=== PATIENT | female | born 1980 | race Caucasian/White ===

== ENCOUNTER 2018-08-04 08:14 | Emergency (ER) | payer OTHER ==
[~2018-08-04] VITALS: Ht 162.6 cm; Wt 63.5 kg
[2018-08-04] MEDS ORDERED: IBUP800T19 PO (08:29)
--- NOTE | 2018-08-04 09:06 | PHYS DOC ---
Adult General Chief Complaint Chief Complaint: SHOULDER INJURY HPI HPI 37-year-old female presents with right shoulder pain. She was moving boxes yesterday at her new house and one of them was heavier than she realized. As a came down immediately to her right arm down and outward. He did not impact her arm. It caused her some discomfort, but the pain increased throughout the evening. She had difficulty sleeping last night as even laying on that side is very painful. Today if she abducts or flexes her shoulder up past about 75 it is very painful. Patient has never had a shoulder injury before she has never had any injury that hurts like this. Her advised that she should have it looked at. She denies fever or chills. She denies any other injury. Review of Systems Review of Systems Constitutional: Denies fever or chills [] Eyes: Denies change in visual acuity, redness, or eye pain [] HENT: Denies nasal congestion or sore throat [] Respiratory: Denies cough or shortness of breath [] Cardiovascular: No additional information not addressed in HPI [] GI: Denies abdominal pain, nausea, vomiting, bloody stools or diarrhea [] : Denies dysuria or hematuria [] Musculoskeletal: Right shoulder pain[] Integument: Denies rash or skin lesions [] Neurologic: Denies headache, focal weakness or sensory changes [] Endocrine: Denies polyuria or polydipsia [] All other systems were reviewed and found to be within normal limits, except as documented in this note. Allergies Allergies Allergies Coded Allergies Type Severity Reaction Last Updated Verified No Known Drug Allergies 08/04/18 No Physical Exam Physical Exam Constitutional: Well developed, well nourished, no acute distress, non-toxic appearance. [] HENT: Normocephalic, atraumatic, bilateral external ears normal, oropharynx moist, no oral exudates, nose normal. [] Eyes: PERRLA, EOMI, conjunctiva normal, no discharge. [] Neck: Normal range of motion, no tenderness, supple, no stridor. [] Cardiovascular:Heart rate regular rhythm, no murmur [] Lungs & Thorax: Bilateral breath sounds clear to auscultation [] Abdomen: Bowel sounds normal, soft, no tenderness, no masses, no pulsatile masses. [] Skin: Warm, dry, no erythema, no rash. [] Back: No tenderness, no CVA tenderness. [] Extremities: Right shoulder pain with abduction and flexion above about 75. The pain is superior and posterior in the shoulder. No obvious deformity[] Neurologic: Alert and oriented X 3, normal motor function, normal sensory function, no focal deficits noted. [] Psychologic: Affect normal, judgement normal, mood normal. [] EKG EKG [] Radiology/Procedures Radiology/Procedures [] Course & Med Decision Making Course & Med Decision Making Pertinent Labs and Imaging studies reviewed. (See chart for details) The patient likely has a strain of one of the ligaments in the shoulder girdle. Based on my testing it is still difficult to tell which ligaments and muscles are involved. Her subscapularis and supraspinatus tear to be the most likely involved. I will give her pain medication 10 [place] 5/325 and have advised regular ibuprofen for the next several days. If this continues to hurt significantly in one week she should seek further care for physical therapy and possible advanced imaging. She is stable for discharge at this time. [] Dragon Disclaimer Dragon Disclaimer This electronic medical record was generated, in whole or in part, using a voice recognition dictation system. Departure Departure: Referrals: AMADOU BERRY DO (PCP) COLETTE ROSE DO Aug 04, 2018 09:06
[2018-08-04] MEDS ORDERED: HYDR-971 PO (09:08)
[2018-08-04 09:12] VITALS: BP 139/97
== END 2018-08-04 09:12 | disposition home or self-care (01) ==
LOC: ER 08:14
DX: M25.511 Pain in right shoulder (principal); G89.11 Acute pain due to trauma; X50.0XXA Overexertion from strenuous movement or load, initial encounter; Y93.89 Activity, other specified; Y92.098 Other place in other non-institutional residence as the place of occurrence of the external cause; Y99.8 Other external cause status
CPT/HCPCS: 99283

== ENCOUNTER → 2021-07-24 | Outpatient (CLI) | payer OTHER ==
[~2021-07-24] MED LIST: HYDR-3165 PO; IBUP800T19 PO
== END ==
LOC: LAB 10:06
PROVIDERS: ATTEND Internal Medicine Cardiovascular Disease
DX: Z20.822 Contact with and (suspected) exposure to COVID-19 (principal); R09.89 Other specified symptoms and signs involving the circulatory and respiratory systems
CPT/HCPCS: U0003